=== PATIENT | female | born 1950 | race Caucasian/White ===

== ENCOUNTER → 2017-12-03 | Outpatient (CLI) | payer MEDICARE, BC ==
--- NOTE | 2017-12-03 18:07 | Diagnostic Imaging Report ---
EXAM: Renal Ultrasound INDICATION: URINARY TRACT INFECTION COMPARISON: None TECHNIQUE: Transverse and longitudinal images of the kidneys and bladder were obtained. FINDINGS: Right Kidney: Length: 9.4 cm Appearance: Normal echogenicity. Collecting system: Mild pelvocaliectasis. Stones: None Cyst/Mass: None Left Kidney: Length: 8.7 cm, slightly small. Appearance: Normal echogenicity. Collecting system: Mild pelvocaliectasis. Stones: None Cyst/Mass: None Bladder: Normal IMPRESSION: Mild bilateral pelvocaliectasis, otherwise unremarkable renal ultrasound exam. Signed by: Dr. Lon Soria M.D. on 12/03/2017 6:04 PM
== END ==
LOC: US 16:12
PROVIDERS: ATTEND Urology
DX: N39.0 Urinary tract infection, site not specified (principal)
CPT/HCPCS: 76770